=== PATIENT | male | born 2000 | race Caucasian/White ===

== ENCOUNTER 2019-08-06 13:20 | Emergency (ER) | payer BC ==
[~2019-08-06] VITALS: Ht 188 cm; Wt 65.8 kg
--- NOTE | 2019-08-06 14:07 | NUR ---
PT BIBS. C/O SORETHROAT, PAINFUL SWALLOWING X 2 DAYS. PLACED ON MONITOR AND PULSE OX. NO ACUTE DISTRESS.
[2019-08-06 14:52] VITALS: BP 113/78
--- NOTE | 2019-08-06 14:52 | NUR ---
Patient discharged to home in stable condition. Written and verbal after care instructions given. Patient verbalizes understanding of instruction and RX. PT ambulatory with a steady gait.
== END 2019-08-06 14:53 | disposition home or self-care (01) ==
LOC: ER 13:25
DX: J02.0 Streptococcal pharyngitis (principal)
CPT/HCPCS: 86403-TC